=== PATIENT | male | born 1940 | race Caucasian/White ===

== ENCOUNTER 2018-06-30 11:49 | Emergency (ER) | payer MEDICARE ==
--- NOTE | 2018-06-30 12:00 | ED ---
GI/ HPI - HPI Summary HPI Summary: This patient is a 82 year old M brought in by EMS to [facility] for a GI bleed that occurred during surgery today. The patient was getting polyps removed during his colonoscopy by Dr. Espinosa today when he developed bleeding occurred that is not fully controlled. The patient is not on a beta yesica. When asked how he is feeling he states what do you think, I feel fine. The patient is still disoriented from anesthesia. LEVEL 5 CAVEAT: Exam limited due to the patients confusion - History of Current Complaint Chief Complaint: EDGIBleed Stated Complaint: RECTAL BLEED Hx Obtained From: Patient Onset/Duration: Still Present Timing: Constant Severity: Moderate Current Severity: Mild Pain Intensity: 0 Location of Pain: Rectal - Allergy/Home Medications Allergies/Adverse Reactions: Allergies Allergy/AdvReac Type Severity Reaction Status Date / Time Tstfkhk-[id number]-Uov Reductase Allergy Pain Verified 06/30/18 11:54 Inhibitor cillins Allergy Severe "jaundice" Uncoded 09/23/13 18:54 Home Medications: Home Medications Losartan TAB* 50 mg PO DAILY 06/30/18 [History Confirmed 06/30/18] Pravastatin (NF) 40 mg PO DAILY 06/30/18 [History Confirmed 06/30/18] PMH/Surg Hx/FS Hx/Imm Hx Cardiovascular History: Reports: Hx Hypertension - Surgical History Surgery Procedure, Year, and Place: hernia repair Infectious Disease History: No Infectious Disease History: Denies: Traveled Outside the [place] in Last 30 Days - Family History Known Family History: Positive: Other Family History: LEVEL 5 Caveat - Social History Alcohol Use: Rare Substance Use Type: Reports: None Review of Systems - ROS Summary Review of Systems Summary: LEVEL 5 CAVEAT: Exam limited due to the patients confusion Negative: Fever Gastrointestinal: Other - GI bleed Neurological: Other - confused All Other Systems Reviewed And Are Negative: No Physical Exam - Summary Physical Exam Summary: Appearance: The patient is well-nourished in no acute distress and in no acute pain. Skin: The skin is warm and dry and skin color reflects adequate perfusion. HEENT: The head is normocephalic and atraumatic. The pupils are equal and reactive. The conjunctivae are clear and without drainage. Nares are patent and without drainage. Mouth reveals moist mucous membranes and the throat is without erythema and exudate. The external ears are intact. The ear canals are patent and without drainage. The tympanic membranes are intact. Neck: The neck is supple with full range of motion and non-tender. There are no carotid bruits. There is no neck vein distension. Respiratory: Chest is non-tender. Lungs are clear to auscultation and breath sounds are symmetrical and equal. Cardiovascular: Heart is regular rate and rhythm. There is no murmur or rub auscultated. There is no peripheral edema and pulses are symmetrical and equal. Abdomen: The abdomen is soft and non-tender. There are normal bowel sounds heard in all four quadrants and there is no organomegaly palpated. Musculoskeletal: There is no back tenderness noted. Extremities are non-tender with full range of motion. There is good capillary refill. There is no peripheral edema or calf tenderness elicited. Neurological: Patient is alert and oriented to person, place and time. The patient has symmetrical motor strength in all four extremities. Cranial nerves are grossly intact. Deep tendon reflexes are symmetrical and equal in all four extremities. Psychiatric: The patient has an appropriate affect and does not exhibit any anxiety or depression Triage Information Reviewed: Yes Vital Signs On Initial Exam: Initial Vitals Temp Pulse Resp BP Pulse Ox 96 F 78 14 183/87 98 06/30/18 11:51 06/30/18 11:51 06/30/18 11:51 06/30/18 11:51 06/30/18 11:51 Vital Signs Reviewed: Yes Completion Of Physical Exam Limited Due To: Level 5 Diagnostics - Vital Signs Vital Signs Temp Pulse Resp BP Pulse Ox 06/30/18 11:51 96 F 78 14 183/87 98 - Laboratory Lab Statement: Any lab studies that have been ordered have been reviewed, and results considered in the medical decision making process. GIGU Course/Dx - Course Course Of Treatment: Mr. Henry was at the [facility] for a routine colonoscopy today by Dr. Espinosa. A polyp was removed and began to hemorrhage. It was Dr. Espinosa's opinion that it was an arterial hemorrhage. She clipped it and injected the area with epinephrine but the bleeding was so great that she was concerned that she would not really get it stopped. She notified us because the patient would need interventional radiology. We a master massive transfusion protocol and notified interventional radiology. Dr. Garcia responded that the team was not available today. I notified Dr. Espinosa and at that point she felt that she had gotten the bleeding under control but that he should come here and be stabilized and be transferred to [facility] in case he would need interventional radiology. On arrival here by ambulance he has an 18-gauge and a 22-gauge peripheral IV and normal vital signs. He is nontoxic in appearance and still drowsy from conscious sedation. [facility] was immediately notified and the patient was accepted into the emergency department by Dr. Jackson. He'll be phoned by helicopter because of the potential critical situation. - Diagnoses Provider Diagnoses: GI bleed Discharge - Sign-Out/Discharge Documenting (check all that apply): Patient Departure - Discharge Plan Condition: Critical Disposition: TRANS HIGHER LVL OF CARE FAC Referrals: Stefano Sandoval MD [Primary Care Provider] - - Billing Disposition and Condition Condition: CRITICAL Disposition: Trans Higher Lvl of Care Fac - Attestation Statements Document Initiated by Scribe: Yes Documenting Scribe: Donovan Gallego Provider For Whom Scribe is Documenting (Include Credential): Domingo Mojica MD Scribe Attestation: I, Donovan Gallego , scribed for Domingo Mojica MD on 06/30/18 at 1216. Scribe Documentation Reviewed: Yes Provider Attestation: The documentation as recorded by the Donovan santos accurately reflects the service I personally performed and the decisions made by me, Domingo Mojica MD Status of Scribe Document: Viewed Consult Consult: I spoke with Dr. Garcia before the patient arrived. There is no team for interventional radiology team today and the patient must be transferred. 1207: I discussed transfer with the transfer center at [facility]. Dr Jackson accepted the patient for transfer.
[2018-06-30 12:16] VITALS: BP 194/95
== END 2018-06-30 13:00 | disposition short-term general hospital (02) ==
LOC: ED 11:49
DX: K92.2 Gastrointestinal hemorrhage, unspecified (principal); Z88.0 Allergy status to penicillin
CPT/HCPCS: 99284